=== PATIENT | female | born 1945 | race Caucasian/White ===

== ENCOUNTER 2019-06-08 09:50 | Outpatient (CLI) | payer MEDICARE, OTHER, SELFPAY ==
--- NOTE | 2019-06-08 09:57 | CT_ITS ---
WS: [id number] CT scan of the . Additional two-dimensional coronal and sagittal reconstruction was performed. MIP im ages were also performed. 06/08/2019 Clinical Data: ABNORMAL CAROTID ULTRASOUND Comparison: CTA of the head and neck, 07/07/2018. DLP: 868.[address] scans at [facility] use at least one of these dose optimization techniques: automat ed exposure control; mA and/or kV adjustment per patient size (includes targeted exams where dose is matched to clinical indication); or iterative reconstruction. Findings: The follow-up examination shows that the right internal carotid stenosis measures 29% and that on the left measures 78%. There is calcification at the common carotid bifurcations which has not changed. The stenosis of the origin of the left vertebral artery is again noted. The remainder of the cervical arterial circulation has not changed. The intracerebral circulation zane ws that the alutiiq of Garcia is intact and there are no changes in the appearance of the anterior, mi ddle and posterior cerebral arteries. No aneurysms are seen. The basilar artery remains unchanged. The lung apices show the changes of emphysema. The intraorbital contents, paranasal sinuses, mastoid air cells, internal auditory canals, sella turcica and nasal passages all remain the same. The thyroi d gland shows numerous small cysts. 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 CT/CT angio neck [id number] Impression: 1. Right internal carotid artery stenosis 29%. 2. Left internal carotid stenosis 78%. 3. Note that the calcification at the carotid bifurcations makes accurate measu rement difficult.
[2019-06-08 10:27] LABS: Blood Urea Nitrogen 12 mg/dL (8-23)
[2019-06-08] MEDS: iohexol 350 mg/mL 100 mL Btl IV (10:34)
== END 2019-06-08 09:51 | disposition home or self-care (01) ==
LOC: RADWPI 09:56
PROVIDERS: Family Provider Family Medicine; PCP Family Medicine; Visit Provider Internal Medicine Cardiovascular Disease
DX: I65.23 Occlusion and stenosis of bilateral carotid arteries (principal); R94.39 Abnormal result of other cardiovascular function study
CPT/HCPCS: 70498; 82565; 84520; Q9967

== ENCOUNTER 2019-12-22 08:36 | Outpatient (CLI) | payer MEDICARE, OTHER, SELFPAY ==
--- NOTE | 2019-12-22 09:00 | CT_ITS ---
WS: [id number] CTA NECK TECHNIQUE: Contrast enhanced CTA of the neck with coronal and sagittal reformatted images and maximum intensity projection (MIP) images. NASCET criteria utilized. CLINICAL INFORMATION: 6 MON TH FOLLOWUP CTA NECK COMPARISON: CTA June 08, 2019 DLP: 2141.[address] scans at [facility] use at least one of these dose optimization techniques: automat ed exposure control; mA and/or kV adjustment per patient size (includes targeted exams where dose is matched to clinical indication); or iterative reconstruction. FINDINGS: RIGHT: Right common carotid artery is patent. Moderate calcified atheromatous disease right carotid b ulb extending to the ICA. Right ICA stenosis measures 77%. This is progressed compared to the prior e xamination LEFT: Left common carotid artery is patent. Moderate calcified atheromatous disease left carotid bulb extending into the ICA. Left ICA stenosis measures 82%. This appears relatively stable compared to p revious. Right dominant vertebral artery is patent. Tiny left vertebral artery which remains patent. Proximal basilar artery is patent. Normal vascularity to the ODD TICKET [employer]ERK territory bilaterally. Moderate calcified ath eromatous disease involving the cavernous carotid arteries which remain patent. Normal vascularity to the EUGENE and MCA territories bilaterally. Persistent mild tapered stenosis involving the right M1 seg ment is unchanged. Paranasal sinuses and mastoid air cells are well aerated. Mild spondylitic changes cervical spine. Multinodular thyroid. Lung apices are well aerated. Aortic arch calcification. 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 This can be followed up with CT or MRI. Infarc t measures 4.6 x 3.1 cm. This appears stable since CT/CT angio neck [id number] IMPRESSION: 1. Right ICA stenosis measures 77% progressed from the previous studies. 2. Left ICA stenosis measuring 82% not significantly changed. 3. Both ICAs are patent to the skull base. 4. Right dominant vertebral artery. Tiny left vertebral artery which remains p atent. 5. Multinodular thyroid. This can be followed up with ultrasound. This is meghan lar in appearance to June 08, 2019. 6. Tapered stenosis involving the right M1 segment is unchanged. 7. Chronic appearing infarct in the right posterior frontal and parietal tempo ral junction extending into the superotemporal lobe. Infarct measures 4.6 x 3.1 cm. This appears stable since
[2019-12-22 09:40] LABS: Blood Urea Nitrogen 16 mg/dL (8-23)
[2019-12-22] MEDS: iohexol 350 mg/mL 100 mL Btl IV (10:15)
== END 2019-12-22 08:37 | disposition home or self-care (01) ==
PROVIDERS: Family Provider Family Medicine; PCP Family Medicine; Visit Provider Internal Medicine Cardiovascular Disease
DX: I65.23 Occlusion and stenosis of bilateral carotid arteries (principal); E04.2 Nontoxic multinodular goiter; I63.9 Cerebral infarction, unspecified
CPT/HCPCS: 36415; 70498; 82565; 84520

== ENCOUNTER 2020-01-12 11:07 | Outpatient (CLI) | payer MEDICARE, OTHER, SELFPAY ==
--- NOTE | 2020-01-12 11:14 | MM_ITS ---
WS: [id number] Bilateral screening digital mammogram, 01/12/2020 Clinical Data: SCREENING Comparison: 12/05/2018, 11/04/2017, 10/16/2016, 09/18/2015, 09/11/2015, 08/30/2014, 08/21/2013, 08/03/2013, , 05/28/2011, 06/23/2010, 06/11/2010, 06/17/2009, 05/29/2008, 05/16/2007, 06/16/2006. Findings: The breast parenchymal pattern shows heterogeneous density. No spiculated masses or clustered calcifi cations are seen. There are no secondary signs of carcinoma. No markers are on the right breast. Ther e is a 1.0 cm retroareolar nodule in the left breast unchanged. MM/[place] [id number] Impression: 1. Negative bilateral mammogram unchanged. 2. Recommend annual screening mammograms. BIRADS: 1-Negative FOLLOW UP: 1 Year Follow-up The CAD time checker was used.
== END 2020-01-12 11:08 | disposition home or self-care (01) ==
PROVIDERS: PCP Family Medicine; Visit Provider Family Medicine
DX: Z12.31 Encounter for screening mammogram for malignant neoplasm of breast (principal)
CPT/HCPCS: 77067

== ENCOUNTER 2020-11-20 14:16 | Outpatient (CLI) | payer MEDICARE, SELFPAY ==
--- NOTE | 2020-11-20 14:35 | XR_ITS ---
WS: [id number] SCREENING DEXA SCAN [employer] CLINICAL INFORMATION: POSTMENOPAUSAL COMPARISON: None. FINDINGS: The L1-L4 bone mineral density measures 1.284 g/cm2. This corresponds to a T score score of 0.9 and Z score of 2.2. Left femoral neck bone mineral density measures 1.063 g/cm2. This corresponds to a T score of 0.4 and Z score of 1.8. Right femoral neck bone mineral density measures 1.066 g/cm2. This corresponds to a T score 0.5of and Z score of 1.9. Mean femoral neck bone mineral density measures 1.064 g/cm2. This corresponds to a T score of 0.5 and Z score of 1.9. XR/XR DEXA axial skeleton* [id number] IMPRESSION: Normal bone mineralization. Patient's FRAX calculated 10 year probability for major osteoporotic fracture i s 12.3 % and osteoporotic hip fracture is 3.2%.
== END 2020-11-20 14:17 | disposition home or self-care (01) ==
PROVIDERS: PCP Family Medicine; Visit Provider Family Medicine
DX: Z78.0 Asymptomatic menopausal state (principal)
CPT/HCPCS: 77080

== ENCOUNTER 2021-03-04 09:26 | Outpatient (CLI) | payer MEDICARE, SELFPAY ==
--- NOTE | 2021-03-04 09:33 | MM_ITS ---
WS: [id number] SCREENING DIGITAL MAMMOGRAM WITH CAD HISTORY: SCREENING COMPARISON: 01/12/2020, 12/05/2018 and 11/04/2017 Bilateral CC and MLO views submitted. Computer aided detection analyzed. Breast composition: There are scattered areas of fibroglandular density. There are new calcifications in the mid LEFT breast 2:00. There are only a few calcifications of these are new and need further e valuation. The remaining calcifications are stable. MM/[place] [id number] IMPRESSION: BI-RADS: 0-Incomplete: Need additional imaging evaluation FOLLOW UP: Need Additional Imaging LEFT BREAST: Magnification views of suspicious calcification CC and MLO. Tyrell Cooper
== END 2021-03-04 09:27 | disposition home or self-care (01) ==
LOC: RADSHAW 09:29
PROVIDERS: PCP Family Medicine; Visit Provider Family Medicine
DX: Z12.31 Encounter for screening mammogram for malignant neoplasm of breast (principal)
CPT/HCPCS: 77067

== ENCOUNTER 2021-03-13 10:45 | Outpatient (CLI) | payer MEDICARE, SELFPAY ==
--- NOTE | 2021-03-13 11:18 | MM_ITS ---
WS: [id number] ADDITIONAL VIEWS LEFT MAMMOGRAM HISTORY: LEFT BREAST CALCIFICATIONS COMPARISON: 03/04/2021, 01/12/2020 12/05/2018 LEFT MAMMOGRAM: Magnification views and true ML LEFT breast. Small cluster of calcifications has slightly increased since the prior studies. May be vascular calci fications based upon the orientation. There are only 4 new calcifications identified. Also noted is a slightly lobulated mass measuring 10 mm posterior to the LEFT nipple. This mass has been described o n multiple prior studies without significant increase in size. MM/[place] [id number] IMPRESSION: BI-RADS: 3-Probably Benign FOLLOW UP: 6 Month Follow-up Recommend diagnostic LEFT mammogram follow-up in 6 months with magnification vi ews of the calcifications to document stability.
== END 2021-03-13 10:46 | disposition home or self-care (01) ==
LOC: RADSHAW 10:49
PROVIDERS: PCP Family Medicine; Visit Provider Family Medicine
DX: R92.1 Mammographic calcification found on diagnostic imaging of breast (principal)
CPT/HCPCS: 77065

== ENCOUNTER 2021-04-29 08:35 | Outpatient (CLI) | payer MEDICARE, SELFPAY ==
--- NOTE | 2021-04-29 08:51 | US_ITS ---
WS: [id number] THYROID ULTRASOUND (TI-RADS CRITERIA) History: Incidental finding of thyroid nodules. Noticed on a prior CT. Technique: Ultrasound examination of the thyroid and adjacent soft tissues is performed. FINDINGS: Right lobe: 4.8 cm x 1.5 cm x 2.1 cm. Volume: 7.9 cm3. Gland is normal size. There are multiple low-attenuation nodules within the gland. These are predomin antly cystic nodules. There is one nodule which is more solid and peripheral increased vascularity. T here are a few ringdown calcifications present. Consistent with a colloid cyst measuring 8 x 9 x 6 mm . Lymph nodes: None. Left lobe: 4.5 cm x 1.8 cm x 2.3 cm. Volume: 9.3 cm3. Mildly enlarged gland. There are multiple cysts throughout the gland. No mural nodules or soft tissue nodule is identified. Lymph nodes: None. US/US thyroid [id number] Impression: 1. Solid nodule without increased vascularity and ringdown artifact consistent with a colloid cyst. Colloid nodules are benign. 2. Additional bilateral thyroid cystic nodules. No solid nodule.
== END 2021-04-29 08:36 | disposition home or self-care (01) ==
LOC: RAD 08:38
PROVIDERS: PCP Family Medicine; Visit Provider Family Medicine
DX: E04.2 Nontoxic multinodular goiter (principal)
CPT/HCPCS: 76536

== ENCOUNTER 2021-07-03 11:35 | Outpatient (CLI) | payer MEDICARE, SELFPAY ==
--- NOTE | 2021-07-03 11:49 | US_ITS ---
WS: [id number] RENAL ULTRASOUND HISTORY: RENAL MASS COMPARISON: RIGHT upper quadrant ultrasound 08/04/2012 TECHNIQUE: 2-D and color Doppler imaging of the kidney submitted. Right kidney: 10.0 cm x 4.2 cm x 4.4 cm. There is a focal cortical defect in the superior pole of the RIGHT kidney. Exophytic cyst from the lo wer pole measures 1.3 x 1.2 x 1.4 cm. There is a small complex cyst associated with the cortical scar in the RIGHT kidney measuring 1.6 x 1.4 x 1.1 cm. No hydronephrosis. Left kidney: 11.1 cm x 4.6 cm x 6.0 cm. Normal size with no hydronephrosis. Cortical cyst centimeter in the mid kidney. Aorta: Mild atherosclerosis aorta. Urinary Bladder: Normal distention. US/US renal BI* [id number] IMPRESSION: 1. No hydronephrosis. No solid renal mass identified. 2. There is a focal scar with an associated complex cyst upper pole RIGHT kidn ey. Consider six-month reevaluation to document stability as this is not a simp le cyst. Alternatively follow-up CT evaluation for renal mass can be obtained.
== END 2021-07-03 11:36 | disposition home or self-care (01) ==
LOC: RAD 11:37
PROVIDERS: PCP Family Medicine; Visit Provider Family Medicine
DX: N28.89 Other specified disorders of kidney and ureter (principal); N28.1 Cyst of kidney, acquired
CPT/HCPCS: 76770

== ENCOUNTER 2021-09-09 07:53 | Outpatient (CLI) | payer MEDICARE, SELFPAY ==
--- NOTE | 2021-09-09 | MM_ITS ---
WS: [id number] LEFT DIGITAL BREAST TOMOSYNTHESIS MAMMOGRAPHY WITH CAD. HISTORY: LEFT BREAST CALCIFICATIONS/6MONTH FOLLOW UP COMPARISON: 03/13/2021, 03/04/2021. Technique: CC, MLO and ML views. Magnification views CC and MLO. Breast composition: There are scattered areas of fibroglandular density. Calcifications in the centr al LEFT breast are more coarse than on the prior study. Suggest that these are benign. No new or incr easing calcification. Long-term stability of a well-circumscribed mass measuring 10 mm central to the nipple. MM/[place] [id number] IMPRESSION: BI-RADS: 3-Probably Benign FOLLOW UP: 6 Month Follow-up Patient to return for annual mammography in February 2022. Additional magnifica tion views of these calcifications should be performed at that time. There has been no progression or new concerning calcification.
== END 2021-09-09 07:54 | disposition home or self-care (01) ==
PROVIDERS: PCP Family Medicine; Visit Provider Family Medicine
DX: R92.1 Mammographic calcification found on diagnostic imaging of breast (principal)
CPT/HCPCS: 77061

== ENCOUNTER → 2021-12-17 09:52 | Outpatient (BNVA) | payer MEDICARE, SELFPAY | PROVIDERS: PCP Family Medicine; Visit Provider Family Medicine | DX: I10 Essential (primary) hypertension (principal); E78.5 Hyperlipidemia, unspecified; E11.9 Type 2 diabetes mellitus without complications; Z98.62 Peripheral vascular angioplasty status | CPT/HCPCS: 80053; 80061; 83036; 85025 ==

== ENCOUNTER 2022-03-10 11:23 | Outpatient (CLI) | payer MEDICARE, SELFPAY ==
--- NOTE | 2022-03-10 11:35 | MM_ITS ---
WS: [id number] DIAGNOSTIC BILATERAL DIGITAL BREAST TOMOSYNTHESIS MAMMOGRAPHY WITH CAD HISTORY: 6MONTH FOLLOW UP breast calcifications. COMPARISON: Prior ultrasound 08/21/2013, mammogram 09/09/2020, 03/13/2021 and 03/04/2021 TECHNIQUE: Bilateral craniocaudad, mediolateral oblique, and mediolateral views are submitted with to mosynthesis and SM. Magnification views LEFT CC and MLO. Computer aided detection utilized. Breast composition: The breasts are heterogeneously dense, which may obscure small masses. Benign nicolette cifications in each breast. Long-term stability of a well-circumscribed mass measuring 11 mm posterio r and central to the nipple. Coarse calcifications in the anterior LEFT breast are stable. Calcificat ions have not increased in size or number. Vascular calcifications. MM/[place] [id number] IMPRESSION: BI-RADS: 2-Benign FOLLOW UP: 1 Year Follow-up Return to annual screening mammography.
== END 2022-03-10 11:24 | disposition home or self-care (01) ==
LOC: RAD 11:24
PROVIDERS: PCP Family Medicine; Visit Provider Family Medicine
DX: R92.8 Other abnormal and inconclusive findings on diagnostic imaging of breast (principal); R92.1 Mammographic calcification found on diagnostic imaging of breast
CPT/HCPCS: 77062; G0279

== ENCOUNTER → 2022-06-16 10:44 | Outpatient (BNVA) | payer MEDICARE, SELFPAY | PROVIDERS: PCP Family Medicine; Visit Provider Family Medicine | DX: Z98.62 Peripheral vascular angioplasty status (principal); E78.5 Hyperlipidemia, unspecified; E11.9 Type 2 diabetes mellitus without complications; I10 Essential (primary) hypertension | CPT/HCPCS: 80053; 80061; 83036; 85025 ==

== ENCOUNTER → 2022-12-15 09:36 | Outpatient (BNVA) | payer MEDICARE, SELFPAY | PROVIDERS: PCP Family Medicine; Visit Provider Family Medicine | DX: E11.9 Type 2 diabetes mellitus without complications (principal); E78.5 Hyperlipidemia, unspecified; I10 Essential (primary) hypertension | CPT/HCPCS: 80053; 80061; 83036; 85025 ==

== ENCOUNTER 2023-03-17 14:16 | Outpatient (CLI) | payer OTHER, MEDICAID, SELFPAY ==
--- NOTE | 2023-03-17 14:20 | MM_ITS ---
WS: [id number] BILATERAL 3D TOMOSYNTHESIS DIGITAL SCREENING MAMMOGRAPHY WITH CAD CLINICAL INFORMATION: SCREENING HISTORY: Screening mammogram. No current complaints. COMPARISON: 2021 TECHNIQUE: Bilateral CC and MLO views. FINDINGS: The breasts are composed of heterogeneous fibroglandular density tissue, which can limit the detectio n of small underlying mass lesions. No suspicious mass, asymmetry, calcifications, or architectural d istortion. No evidence of malignancy. Vascular calcification. Incidental punctate and lucent centered calcifications. Long-term stability well-circumscribed nodule measuring 11 mm LEFT breast anteriorly . Stable clustered calcifications anterior RIGHT breast. IMPRESSION: MM/[place] [id number] BI-RADS: 2-Benign FOLLOW UP: 1 Year Follow-up Recommend return to annual screening mammography.
== END 2023-03-17 14:17 | disposition home or self-care (01) ==
LOC: RAD 14:17
PROVIDERS: PCP Family Medicine; Visit Provider Family Medicine
DX: Z12.31 Encounter for screening mammogram for malignant neoplasm of breast (principal)
CPT/HCPCS: 77063; 77067

== ENCOUNTER → 2023-06-15 09:21 | Outpatient (BNVA) | payer OTHER, MEDICAID, SELFPAY | PROVIDERS: PCP Family Medicine; Visit Provider Family Medicine | DX: I10 Essential (primary) hypertension (principal); E78.5 Hyperlipidemia, unspecified; E11.9 Type 2 diabetes mellitus without complications; Z98.62 Peripheral vascular angioplasty status | CPT/HCPCS: 80053; 80061; 83036; 85025 ==

== ENCOUNTER → 2023-08-12 10:08 | Outpatient (BNVA) | payer OTHER, MEDICAID, SELFPAY | PROVIDERS: PCP Family Medicine; Visit Provider Family Medicine | DX: K92.2 Gastrointestinal hemorrhage, unspecified (principal); R10.9 Unspecified abdominal pain | CPT/HCPCS: 80048; 85025 ==

== ENCOUNTER → 2023-08-18 12:47 | Outpatient (BNVA) | payer MEDICARE, MEDICAID, SELFPAY | PROVIDERS: PCP Family Medicine; Referring Provider Family Medicine; Visit Provider Surgery | DX: K92.2 Gastrointestinal hemorrhage, unspecified (principal); R10.9 Unspecified abdominal pain | CPT/HCPCS: 99204 ==

== ENCOUNTER → 2023-08-24 10:58 | Outpatient (BNVA) | payer MEDICARE, MEDICAID, SELFPAY | PROVIDERS: PCP Family Medicine; Visit Provider Family Medicine | DX: I10 Essential (primary) hypertension (principal); K92.2 Gastrointestinal hemorrhage, unspecified; R10.9 Unspecified abdominal pain | CPT/HCPCS: 80048; 85025; 86140 ==

== ENCOUNTER 2023-08-26 09:51 | Day surgery (SDC) | payer MEDICARE, MEDICAID, SELFPAY ==
--- NOTE | 2023-08-26 10:08 | P.HPUD_ITS ---
Surgery/Procedure H&P Update DATE OF PROCEDURE: August 26, 2023 DATE H&P PERFORMED: 08/18/23 H&P UPDATE INFORMATION: I have reviewed H&P completed within last 30 days, I have examined patient prior to procedure, No changes to prior documentation and [place] is in [facility] [place] indicated PLANNED PROCEDURE: Operation Date: 08/26/23 11:20 Proposed Procedures p EGD [id number], R10.9, K92.2(Not Applicable) - Félix Sanz MD
--- NOTE | 2023-08-26 10:08 | W.PM.OPSUD ---
Surgery/Procedure H&P Update DATE OF PROCEDURE: August 26, 2023 DATE H&P PERFORMED: 08/18/23 H&P UPDATE INFORMATION: I have reviewed H&P completed within last 30 days, I have examined patient prior to procedure, No changes to prior documentation and H&[place] is in [facility] [place] date indicated PLANNED PROCEDURE: Operation Date: 08/26/23 11:20 Proposed Procedures p EGD [id number], R10.9, K92.2(Not Applicable) - Félix Sanz MD
[2023-08-26 10:14] VITALS: BP 129/48; PULSE 67; RESP 16; TEMP 36.7; O2SAT 97; BMI 26.1
[2023-08-26] MEDS: sodium chloride 0.9% 1,000 ML 30 ML IV (10:26)
[2023-08-26 10:29] LABS: Glucose Point of Care 219 mg/dL (70-110)
--- NOTE | 2023-08-26 11:13 | ANES.PREANE2 ---
Pre-Anesthetic Assessment Height/Weight: Height 1.63 m Weight 68.946 kg Temp Pulse Resp BP Pulse Ox O2 Del Method 98.0 F 67 16 129/48 97 Room Air 08/26/23 10:14 08/26/23 10:14 08/26/23 10:14 08/26/23 10:14 08/26/23 10:14 08/26/23 10:14 Preop Diagnosis: Abd pain Operation Date: 08/26/23 11:20 Proposed Procedures p EGD 26453, R10.9, K92.2(Not Applicable) - Félix Sanz MD Last intake: Intake Last Liquid Date 08/25/23 Last Liquid Time 23:30 Last Solid Date 08/25/23 Last Solid Time 17:30 Social No alcohol and No tobacco Exam alert, oriented x 3, clear to auscultation bilaterally and regular rate & rhythm Airway Submandibular: within normal limits Cervical ROM: within normal limits Mallampati: Class II Dentition: full (Upper plate> A few intact teeth on bottom) History/ROS No significant history except as noted and No significant complaints Pulmonary Cough CV/HEM Coronary Artery Disease and Peripheral Vascular Disease (Stents heart and legs) None reported Hepatic None reported GI None reported Metabolic Diabetes Mellitus Musc/sk Lower Back Pain Neuropsych None reported Anesthetic Plan ASA status: 3 Anesthesia: Anesthesia Evaluation and MAC Risk of > 500 ml blood loss (7ml/kg in children): No Medications/Allergies Home Medications Medication Instructions Recorded Confirmed Last Taken Type carvedilol 25 mg tablet 25 mg PO BID #180 tabs 01/28/23 08/26/23 08/26/23 Rx clopidogrel 75 mg tablet (Plavix) 75 mg PO DAILY #90 tabs 01/28/23 08/26/23 08/19/23 Rx ipratropium bromide 21 mcg (0.03 2 spray intranasal BID #30 mL 01/28/23 08/26/23 08/22/23 Rx %) nasal spray isosorbide mononitrate 60 mg 60 mg PO DAILY #90 tabs 01/28/23 08/26/23 3 Weeks Ago Rx tablet,extended release 24 hr ~08/03/23 losartan 100 mg tablet 100 mg PO DAILY #90 tabs 01/28/23 08/24/23 08/24/23 Rx spironolactone 25 mg tablet 25 mg PO DAILY #90 tabs 01/28/23 08/26/23 08/25/23 Rx nitroglycerin 0.4 mg sublingual See Rx Instructions .Route 04/09/23 08/24/23 3 Weeks Ago Rx tablet .COMPLEX #50 tabs ~08/03/23 omeprazole 40 mg capsule,delayed 40 mg PO BID #60 caps 08/12/23 08/26/23 08/25/23 Rx release sucralfate 100 mg/mL oral 10 ml PO BID 30 days #840 mL 08/18/23 08/26/23 08/25/23 Rx suspension apixaban 5 mg tablet (Eliquis) 5 mg PO BID 08/24/23 08/26/23 08/23/23 History buspirone 15 mg tablet 15 mg PO BID 08/24/23 08/26/23 08/25/23 History glimepiride 2 mg tablet 2 mg PO BID 08/24/23 08/24/23 08/23/23 History metformin 1,000 mg tablet 1,000 mg PO BID 08/24/23 08/26/23 08/24/23 History rosuvastatin 40 mg tablet 40 mg PO DAILY 08/24/23 08/26/23 08/25/23 History metoprolol tartrate 50 mg tablet 50 mg PO BID PRN Hypertension 08/25/23 08/26/23 Unknown History Allergies Allergy/AdvReac Type Severity Reaction Status Date / Time nirmatrelvir Allergy Severe low bp, Verified 08/18/23 13:06 [From Paxlovid (EUA)] chest tightness ritonavir Allergy Severe low bp, Verified 08/18/23 13:06 [From Paxlovid (EUA)] chest tightness atorvastatin [From Lipitor] AdvReac Intermediate myalgias Verified 08/18/23 13:06 codeine AdvReac Intermediate Unknown Verified 08/18/23 13:06 Penicillins AdvReac Intermediate Unknown Verified 08/18/23 13:06 Current Medications Generic Name Dose Route Start Last Admin Trade Name Freq PRN Reason Stop Dose Admin Sodium Chloride 1,000 mls @ 30 mls/hr 08/26/23 10:15 08/26/23 10:26 Sodium Chloride 0.9% IV 30 mls/hr .Q24H ENEIDA Administration PFSH Anesthesia Medical History Peripheral vascular angioplasty status Diabetes mellitus Hyperlipidemia Hypertension Data Anesthesia Cardiac Studies: No Data to Display
[2023-08-26 12:35] VITALS: BP 109/47; PULSE 58; RESP 18; TEMP 36.7; O2SAT 92
[2023-08-26 12:46] VITALS: BP 103/48; PULSE 60; RESP 18; O2SAT 93
[2023-08-26 12:59] VITALS: BP 106/55; PULSE 63; RESP 18; O2SAT 94
[2023-08-26 13:10] VITALS: BP 134/50; PULSE 66; RESP 18; O2SAT 94
== END 2023-08-26 13:34 | disposition home or self-care (01) ==
PROVIDERS: PCP Family Medicine; Visit Provider Surgery
PROC: 0DJ08ZZ Inspection of Upper Intestinal Tract, Via Natural or Artificial Opening Endoscopic (ICD-10-PCS; CPT 43235; principal; 2023-08-26 11:20)
DX: K29.50 Unspecified chronic gastritis without bleeding (principal); K29.80 Duodenitis without bleeding; I25.10 Atherosclerotic heart disease of native coronary artery without angina pectoris; Z95.5 Presence of coronary angioplasty implant and graft; E11.9 Type 2 diabetes mellitus without complications; Z79.84 Long term (current) use of oral hypoglycemic drugs; I10 Essential (primary) hypertension; E78.5 Hyperlipidemia, unspecified
CPT/HCPCS: 36416; 43239; 82962; 88305; J2704; J7030

== ENCOUNTER → 2023-09-08 08:12 | Outpatient (BNVA) | payer MEDICARE, MEDICAID, SELFPAY | PROVIDERS: PCP Family Medicine; Visit Provider Surgery | DX: Z09 Encounter for follow-up examination after completed treatment for conditions other than malignant neoplasm (principal) | CPT/HCPCS: 99213 ==

== ENCOUNTER → 2023-12-14 09:17 | Outpatient (BNVA) | payer MEDICARE, MEDICAID, SELFPAY | PROVIDERS: PCP Family Medicine; Visit Provider Family Medicine | DX: I10 Essential (primary) hypertension (principal); E11.9 Type 2 diabetes mellitus without complications; Z98.62 Peripheral vascular angioplasty status | CPT/HCPCS: 80053; 83036; 85025 ==

== ENCOUNTER → 2024-03-08 11:06 | Outpatient (BNVA) | payer MEDICARE, MEDICAID, SELFPAY | PROVIDERS: PCP Family Medicine; Visit Provider Family Medicine | DX: I10 Essential (primary) hypertension (principal); E78.5 Hyperlipidemia, unspecified; E11.9 Type 2 diabetes mellitus without complications; Z12.39 Encounter for other screening for malignant neoplasm of breast | CPT/HCPCS: 80053; 80061; 83036; 85025 ==

== ENCOUNTER → 2024-03-23 10:11 | Outpatient (BNVA) | payer MEDICARE, MEDICAID, SELFPAY | PROVIDERS: PCP Family Medicine; Visit Provider Family Medicine | DX: K92.2 Gastrointestinal hemorrhage, unspecified (principal) | CPT/HCPCS: 80048; 85025 ==

== ENCOUNTER → 2024-05-17 10:43 | Outpatient (BNVA) | payer MEDICARE, MEDICAID, SELFPAY | PROVIDERS: PCP Family Medicine; Visit Provider Family Medicine | DX: I10 Essential (primary) hypertension (principal); E78.5 Hyperlipidemia, unspecified; E11.9 Type 2 diabetes mellitus without complications; K92.2 Gastrointestinal hemorrhage, unspecified; Z98.62 Peripheral vascular angioplasty status | CPT/HCPCS: 80053; 85025 ==

== ENCOUNTER → 2024-10-05 13:13 | Outpatient (BNVA) | payer MEDICARE, MEDICAID, SELFPAY | PROVIDERS: PCP Family Medicine; Visit Provider Family Medicine | DX: I10 Essential (primary) hypertension (principal); Z98.62 Peripheral vascular angioplasty status; K92.2 Gastrointestinal hemorrhage, unspecified; E11.9 Type 2 diabetes mellitus without complications | CPT/HCPCS: 80053; 83036; 85025 ==